=== PATIENT | female | born 1945 | race Caucasian/White ===

== ENCOUNTER 2017-10-11 12:34 | Emergency (ER) | payer MEDICARE, OTHER ==
[~2017-10-11] VITALS: Ht 162.6 cm; Wt 74.8 kg
--- OUTSIDE RECORDS SUMMARY | ~2017-10-11 | XMS | Clinical Summary ---
Demographics + + + | Address | [address] | | | [place] [address] | + + + | Home Phone | | + + + | Preferred Language | Unknown | + + + | Marital Status | | + + + | Confucianist Affiliation | CHR | + + + | Race | White | + + + | Ethnic Group | Not or | + + + Author + + + | Author | [facility] | + + + | Organization | [facility] | + + + | Address | Unknown | + + + | Phone | Unavailable | + + + Support + + + + + | Name | Relationship | Address | Phone | + + + + + | ANA MARIA ARROYO | ECON | [address] | | | | | [place] | | | | | [phone] | | + + + + + Care Team Providers + +------+ + | Care Bill Recapitulation Clerk Name | Role | Phone | + +------+ + | Adam Boone MD | PP | | + +------+ + Source Comments ESTHER is fully live on both [facility] Ambulatory and [facility] InPatient.[facility] Allergies + + + + + + | Active Allergy | Reactions | Severity | Noted | Comments | | | | | Date | | + + + + + + | Naproxen Sodium | Nausea and Vomiting | | 02/29/20 | | | | | | 16 | | + + + + + + | Cephalexin | Hives | Low | 02/20/20 | | | | | | 11 | | + + + + + + Current Medications + + +-------+---------+------+------+-------+ | Prescription | Sig. | Disp. | Refills | Star | End | Statu | | | | | | t | Date | s | | | | | | Date | | | + + +-------+---------+------+------+-------+ | ERGOCALCIFEROL, | Take by mouth. | | | | | Activ | | VITAMIN D2, (VITAMIN | | | | | | e | | D ORAL) | | | | | | | + + +-------+---------+------+------+-------+ | | Take 25 mg by mouth | | | | | Activ | | hydroCHLOROthiazide | once daily. | | | | | e | | 25 mg oral tablet | | | | | | | + + +-------+---------+------+------+-------+ | lisinopril 10 mg | Take 10 mg by mouth | | | | | Activ | | oral tablet | once daily. | | | | | e | + + +-------+---------+------+------+-------+ | melatonin 3 mg | Take 3 mg by mouth. | | | | | Activ | | oral tablet | | | | | | e | + + +-------+---------+------+------+-------+ Active Problems + + + | Problem | Noted Date | + + + | Posterior tibial tendon dysfunction | 10/15/2010 | + + + | Pes planovalgus, acquired | 10/15/2010 | + + + | Equinus deformity of foot, acquired | 10/15/2010 | + + + | Hallux valgus, acquired | 10/15/2010 | + + + + + | Overview: ICD10 | + + Family History + + +------+ + | Medical History | Relation | Name | Comments | + + +------+ + | Cancer | Mother | | | + + +------+ + | Cancer | Sister | | | + + +------+ + + +------+ + + | Relation | Name | Status | Comments | + +------+ + + | Father | | | during surgery | + +------+ + + | Mother | | | cancer | | | | (Age | | | | | 68) | | + +------+ + + | Sister | | | breast cancer | | | | (Age | | | | | 55) | | + +------+ + + | Sister | | | | + +------+ + + Social History + + + +--------+ + | Tobacco Use | Types | Packs/Day | Years | Date | | | | | Used | | + + + +--------+ + | Former Smoker | Cigarettes | 0.1 | 20 | Quit: 03/03/1979 | + + + +--------+ + + +---+---+---+ | Smokeless Tobacco: | | | | | Never Used | | | | + +---+---+---+ + + +---------+ + | Alcohol Use | Drinks/We | oz/Week | Comments | | | ek | | | + + +---------+ + | Yes | | | 6 drinks per week | + + +---------+ + + + + | Sex Assigned at | Date Recorded | | | | + + + | Not on file | | + + + Last Filed Vital Signs + + + + | Vital Sign | Reading | Time Taken | + + + + | Blood Pressure | 115/66 | 02/29/2016 2:35 PM PST | + + + + | Pulse | 64 | 02/29/2016 2:35 PM PST | + + + + | Temperature | 36.6 C (97.9 F) | 01/08/2012 8:45 AM PST | + + + + | Respiratory Rate | 18 | 02/29/2016 2:35 PM PST | + + + + | Oxygen Saturation | 99% | 01/08/2012 8:45 AM PST | + + + + | Inhaled Oxygen | - | - | | Concentration | | | + + + + | Weight | 77.4 kg (170 lb 9.6 | 02/29/2016 2:35 PM PST | | | oz) | | + + + + | Height | 162.6 cm (5' 4") | 02/29/2016 2:35 PM PST | + + + + | Body Mass Index | 29.28 | 02/29/2016 2:35 PM PST | + + + + Plan of Treatment + + + + + | Health Maintenance | Due Date | Last Done | Comments | + + + + + | INFLUENZA VACCINE | | | | | (FLU SHOT) | 8 | | | + + + + + Results Not on filefrom Last 3 Months Insurance + +--------+ +--------+ + + | Payer | Benefi | Subscriber | Type | Phone | Address | | | t Plan | ID | | | | | | / | | | | | | | Group | | | | | + +--------+ +--------+ + + | MEDICARE | MEDICA | xxxxxxxxxx | Medica | [phone] | [address] | | | RE A & | | re | [phone] | [place] [address] | | | B | | | | | + +--------+ +--------+ + + | COMMERCIAL | INDIVI | [phone] | Indemn | | | | INDIVIDUAL | DUAL | | ity | | | | | COMMER | | | | | | | CIAL | | | | | + +--------+ +--------+ + + + +--------+ +--------+ + + | Guarantor Name | Accoun | Relation to | Date | Phone | Billing Address | | | t Type | Patient | of | | | | | | | | | | + +--------+ +--------+ + + | ZULEIKA ARROYO | Person | Self [birth year] Home: | [address] [place] [address] | | | al/Fam | | 1946 | [phone] | [place] [address] | | | frantz | | | [phone] | | + +--------+ +--------+ + +
--- OUTSIDE RECORDS SUMMARY | ~2017-10-11 | XMS | Clinical Summary ---
Demographics + + + | Address | [address] | | | [place] [address] | + + + | Home Phone | | + + + | Preferred Language | Unknown | + + + | Marital Status | | + + + | Anglican Affiliation | CHR | + + + [...] [place] | | | | | [phone] | | + + + + + Care Team Providers + +------+ + | Care Job Training Specialist Name | Role | Phone | + +------+ + | Adam Boone MD | PP | | + +------+ + Source Comments ESTHER is fully live on both [facility] Ambulatory and [facility] InPatient.[facility] Allergies + + + + + + [...] | Medica | [phone] | [address] | | | RE A & | | re | [phone] | [place] [address] | | | B | | | [...] | Self | [birth year] | Home: | [address] [place] [address] | | | al/Fam | | 1946 | [phone] | [place] [address] | | | frantz | | | [address] | | + +--------+ +--------+ + +
[~2017-10-11 12:34] MED LIST: LISINOPRIL10 MG PO; MELATONIN1 MG PO; PEPCID20 MG PO; PRILOSEC20 MG PO; VITAMIN D5000 UNIT PO
[2017-10-11] MEDS ORDERED: VITAMIN D250000 UNIT PO (13:03)
[2017-10-11] MEDS ORDERED: HYDROCHLOROTHIA25 MG PO (13:03)
[2017-10-11] MEDS ORDERED: PHENERGAN25 MG PR (14:56)
--- NOTE | 2017-10-11 19:49 | EKG ---
[facility] [address] [facility] [place], [place] [address] Signed Normal sinus rhythm Normal ECG No previous ECGs available Confirmed by TONY PHILLIPS MD ([id number]) on 10/11/2017 7:48:48 PM Electronically Signed By: TONY PHILLIPS MD 10/11/17 1949 PATIENT NAME: NATY CASAS AUBREY Electrocardiogram DATE OF : 49 PHYSICIAN: TONY PHILLIPS MD REPORT #: [id number] REPORT IS CONFIDENTIAL AND NOT TO BE RELEASED WITHOUT AUTHORIZATION
== END 2017-10-11 15:43 | disposition home or self-care (01) ==
LOC: ED 12:34
DX: R11.2 Nausea with vomiting, unspecified (principal); Z98.890 Other specified postprocedural states; Z87.891 Personal history of nicotine dependence; Z88.6 Allergy status to analgesic agent; Z88.1 Allergy status to other antibiotic agents; Z88.0 Allergy status to penicillin; Z79.899 Other long term (current) drug therapy
CPT/HCPCS: 80048; 84484; 85025; 93005; 93010; 96361; 96374; 96375; 99285; J2405; J2550; J2930; J7030

== ENCOUNTER 2020-07-18 08:00 | Day surgery (SDC) | payer MEDICARE ==
[~2020-07-18] VITALS: Ht 162.6 cm; Wt 81.8 kg
[~2020-07-18 08:00] MED LIST changes: +HYDROCHLOROTHIA25 MG PO; +PHENERGAN25 MG PR; +VITAMIN D250000 UNIT PO
--- NOTE | 2020-07-18 10:34 | NUR ---
07/18/20 1034 Sarah العراقي 1016 PT ARRIVED IN PACU SLEEPY WITH NO C/O'S. 1020 PT INCONTINENT OF URINE IN SURGERY. LINEN CHANGED AND SARAHCKS UNDER PT. 1034 AWAKE TALKING TO STAFF. NO C/O'S.
--- NOTE | 2020-07-18 10:49 | NUR ---
PATIENT BACK IN DAY SURGERY ROOM FROM PACU. RATES PAIN 3/10. DENIES NEED FOR PAIN MEDICATION AT THIS TIME. VS CHECKED. IV SITE WNL. SCDs ON. NO BLOODY DRAINAGE SEEN IN MOUTH. GIVEN ICE WATER. CALL LIGHT WITHIN REACH.
[2020-07-18] MEDS ORDERED: HYDROCODONE-ACE15 M3 PO (10:57)
--- NOTE | 2020-07-18 13:30 | NUR ---
1140: VS CHECKED. TOLERATING WATER. RATES PAIN 3/10. DECLINES PAIN MEDICATION AT THIS TIME. PATIENT STATES READY TO GO HOME. DISCHARGE INSTRUCTIONS GIVEN TO PATIENT. PATIENT ASSISTED OOB AND TO WALK AROUND ROOM. GAIT STEADY. PATIENT GETTING DRESSED INDEPENDENTLY. 1155: RIGHT HAND IV DC'D WNL. TIP INTACT. DRESSING APPLIED. PATIENT DISCHARGED TO HOME WITH VIA WHEELCHAIR.
--- NOTE | 2020-07-20 21:24 | PATH ---
[facility] [address] [place], [place] [address] Signed SPECIMEN(S): A RIGHT MANDIBLE SPECIMEN SOURCE: A. RIGHT MANDIBLE CLINICAL HISTORY: Right retromolar trigone lesion, suspicious for neoplasia. FINAL PATHOLOGIC DIAGNOSIS: Right mandible, excision: - Polypoid squamous mucosa with irregular acanthosis and underlying submucosal chronic inflammation. - Salivary gland tissue with chronic inflammation. - No evidence of malignancy. COMMENT: As part of [facility]' Quality Improvement Program, this case was reviewed by another member of our pathology staff. NRT:BRP:cml:C2NR MICROSCOPIC EXAMINATION: Histologic sections of all submitted blocks are examined by light microscopy. These findings, together with the gross examination, support the pathologic diagnosis. GROSS DESCRIPTION: The specimen, labeled "SB, right mandible lesion," is received in formalin and consists of two irregular shaped pink-alegria, soft tissue fragments that in aggregate measure 1.2 x 0.8 x 0.4 cm. Specimen is sectioned and entirely submitted in single cassette (A1). JS (under the direct supervision of a pathologist) The Gross Description was prepared using a voice recognition system. The report was reviewed for accuracy; however, sound-alike word errors, addition and/or deletions may occur. If there is any question about this report, please contact Client Services. PERFORMING LABORATORY: The technical component was performed by [facility], [address] [place] [id number] (Foundry Melt Supervisor: Hayley Ramirez MD; CLIA# [id number]). [facility] [address] [address] (CLIA# PATIENT NAME: NATY CSAAS PATHOLOGY DATE OF : 49 REPORT #: [id number] PHYSICIAN: NICOLE PATHOLOGY PCP: EDMUNDO BARRIGA MD REPORT IS CONFIDENTIAL AND NOT TO BE RELEASED WITHOUT AUTHORIZATION [facility] [address] [place], [place] [address] Signed [id number]). Diagnostician: Lynn Vang MD Pathologist Electronically Signed 07/20/2020 Copies: ~ PATIENT NAME: NATY CASAS PATHOLOGY DATE OF : 49 REPORT #: [id number] PHYSICIAN: NICOLE PATHOLOGY PCP: EDMUNDO BARRIGA MD REPORT IS CONFIDENTIAL AND NOT TO BE RELEASED WITHOUT AUTHORIZATION
--- NOTE | 2020-07-25 11:40 | OR ---
[facility] [address] [place], [place] [address] Signed DATE OF OPERATION: 07/18/2020 SURGEON: Marcello Acosta MD PREOPERATIVE DIAGNOSIS: Right retromolar trigone lesion. POSTOPERATIVE DIAGNOSIS: Right retromolar trigone lesion. PROCEDURE: Direct laryngoscopy, excision of right retromolar trigone lesion. ANESTHESIA: General orotracheal FASHION CONSULTANT SELLING: Bobby. PREOPERATIVE HISTORY: Zuleika is a 75-year-old lady with a lesion behind the right mandibular posterior molar that is a sore area, it has been present for several months, sensitive, some bleeding, dentist evaluated and recommended biopsy. She is taken to the operating room for that procedure. OPERATIVE PROCEDURE AND FINDINGS: After informed consent, the patient was taken to the operating room, placed in supine position where general orotracheal anesthesia was induced. The patient and procedure were verified. Digital palpation of the right mandible, right retromolar trigone area identified really no suspicious masses, lesions. The anterior commissure laryngoscope was used to visualize this area both on the pharynx and the medial surface of the mandible and no abnormalities were identified. The McIvor mouth gag was then placed into suspension. The lesion in question was just immediately posterior to the right mandibular posterior most tooth and there was a small ulcerated area measuring about 5-6 mm with some granular tissue underneath, this was slightly indurated thickened area, did not appear to involve the gingiva of the tooth, but very close to that posterior gingiva. The area was injected with 1% lidocaine with epi. A 15 blade was used to excise mucosa around this lesion and it was an excised sharply and sent to pathology. Bleeding was controlled with needle point cautery. Hemostasis was obtained. The operative site was then closed with 4-0 interrupted Vicryl. Hemostasis verified. The Electronically Signed By: MARCELLO ACOSTA MD 07/25/20 1140 PATIENT NAME: ZULEIKA CASAS OPERATIVE REPORT DATE OF : 49 REPORT #: [id number] PHYSICIAN: MARCELLO ACOSTA MD PCP: EDMUNDO BARRIGA MD REPORT IS CONFIDENTIAL AND NOT TO BE RELEASED WITHOUT AUTHORIZATION [facility] [address] [facility] [place] [place] [address] Signed pharynx suctioned clear of blood secretions. The mouth gag was removed. The patient was then awakened, extubated, transported to the recovery room in good condition. No complications. BLOOD LOSS: Minimal. SPECIMEN: To pathology. DRAINS: No drains. Marcello Acosta MD GC/MODL /[id number] Copies: ~ Electronically Signed By: MARCELLO ACOSTA MD 07/25/20 1140 PATIENT NAME: ZULEIKA CASAS OPERATIVE REPORT DATE OF : 49 REPORT #: [id number] PHYSICIAN: MARCELLO ACOSTA MD PCP: EDMUNDO BARRIGA MD REPORT IS CONFIDENTIAL AND NOT TO BE RELEASED WITHOUT AUTHORIZATION
== END 2020-07-18 11:55 | disposition home or self-care (01) ==
LOC: OPS 08:00 → DS 08:00 → OPS 09:30 → DS 09:30 → OPS 11:55
PROVIDERS: ATTEND Otolaryngology
PROC: 0CJS8ZZ Inspection of Larynx, Via Natural or Artificial Opening Endoscopic (ICD-10-PCS; principal; 2020-07-18 09:30)
PROC: 0CB4XZZ Excision of Buccal Mucosa, External Approach (ICD-10-PCS; 2020-07-18 09:30)
DX: K13.79 Other lesions of oral mucosa (principal); K11.23 Chronic sialoadenitis; K21.9 Gastro-esophageal reflux disease without esophagitis; I10 Essential (primary) hypertension; Z88.6 Allergy status to analgesic agent; Z88.1 Allergy status to other antibiotic agents; Z88.0 Allergy status to penicillin; Z87.891 Personal history of nicotine dependence
CPT/HCPCS: 00320; 88305; J1100; J2001; J2405; J2704; J3010; J7121